=== PATIENT | male | born 1960 | race Caucasian/White ===

== ENCOUNTER 2020-05-10 08:00 | Emergency (ER) | payer BC ==
[2020-05-10 09:11] LABS: Absolute Lymphocytes (CBC) 0.5 K/uL (0.7-4.9); Basophils % 0.5 % (0-1.3); Hematocrit 42.8 % (39.6-49.0); Lymphocytes % 8.3 % (15.3-44.8); MPV 8.2 fL (7.6-11.3); RBC Red Blood Cell Count 4.68 M/uL (4.33-5.43)
--- NOTE | 2020-05-10 09:15 | RAD REPORT ---
EXAM DESCRIPTION: RAD - Chest Single View - 05/10/2020 9:06 am CLINICAL HISTORY: COUGH COMPARISON: None TECHNIQUE: AP portable chest image was obtained 05/10/2020 9:06 am . FINDINGS: No focal consolidation or mass. Low lung volumes accentuate interstitial pattern. No defin itive infiltrative process seen. There is day hazy opacification in the lateral right lung base. This could be atelectasis or minimal infiltrate. Heart and vasculature are normal. No measurable pleural effusion and no pneumothorax. No acute bony abnormality seen. No acute aortic findings suspected. IMPRESSION: Limited shallow inspiration film shows a hazy airspace opacification in the lateral righ t lung base. This could be atelectasis or minimal infiltrate.
[2020-05-10] MEDS ORDERED: ONDANSETRON 4 MG/2 ML VIAL ONE (09:17)
[2020-05-10] MEDS ORDERED: NA CHLORIDE 0.9% 1,000 ML ONE (09:17)
[2020-05-10] MEDS ORDERED: Levofloxacin 750mg IV 750 MG/150 ML BAG IV ONE (09:41)
[2020-05-10 09:46] LABS: Albumin 3.4 g/dL (3.4-5.0); Bilirubin Direct 0.2 mg/dL (0-0.2); Bilirubin Total 0.8 mg/dL (0.2-1.0); Protein, Total 8.1 g/dL (6.4-8.2)
[2020-05-10 09:56] LABS: Blood Morphology Comment NOT SEEN (NOT SEEN); Platelet Estimate ADEQ
--- NOTE | 2020-05-10 10:00 | RAD REPORT ---
EXAM DESCRIPTION: CT - Abdomen Pelvis W Contrast - 05/10/2020 9:43 am CLINICAL HISTORY: vomiting;Abd pain COMPARISON: Chest Single View dated 05/10/2020 TECHNIQUE: Biphasic, helical CT imaging of the abdomen and pelvis was performed following 100 ml non -ionic IV contrast. No oral contrast administered. All CT scans are performed using dose optimization technique as appropriate and may include automated exposure control or mA/KV adjustment according to patient size. FINDINGS: Lung base images show peripheral ground-glass opacification in the lower right lung field with trace opacification in the left base. Although this could be atelectasis, viral pneumonia is lucrecia pected. COVID and non COVID pneumonia is can have this peripheral ground-glass opacification. The por table chest film was limited an additional lung parenchymal opacification could be present. Liver and spleen show no suspicious findings. There is fatty infiltration into the pancreatic parench yma with no pancreatic mass or peripancreatic stranding. Gallbladder and biliary tree are also withou t suspicious finding. Gallstones can be occult on CT imaging. Symmetric renal function is seen with no hydronephrosis or suspicious renal mass. No pyelonephritis o r acute renal parenchymal process. There is an exophytic 2.1 centimeter cyst in the posterior lower p ole left kidney. No bladder abnormalities. No adrenal abnormalities. Prostate gland is prominent proj ecting into the urinary bladder base. No dilated bowel loops or bowel wall thickening. Appendix is normal. There is diverticulosis without evidence for diverticulitis. No free air, free fluid or inflammatory stranding. No hernia, mass or b ulky lymphadenopathy. No suspicious bony findings. Lumbar disc and bone degenerative change present most notable at L5-S1. IMPRESSION: Contrast enhanced CT abdomen and pelvis showing no acute or emergent finding. Lung base ground-glass opacification is suspicious for viral pneumonia. This could be a COVID or non COVID viral infiltrative process. Atelectasis is unlikely. Lung grant are only partially imaged. The portable chest was limited and there may be additional inf iltrative changes in the mid and upper lung grant.
--- NOTE | 2020-05-10 10:33 | EDPHYS ---
Physician Documentation [facility] Name: Dante Suárez Age: 59 yrs Sex: Male : 1960 Arrival Date: 05/10/2020 Time: 08:03 Bed 5 Private MD: ED Physician Jacob Burrell HPI: 05/10 10:05 This 59 yrs old Male presents to ER via Ambulatory with complaints of Fever, rn Cough, Vomiting. 10:05 The patient reports fever, not measured (subjective). Onset: The symptoms/episode rn began/occurred 2 week(s) ago. Modifying factors: there are no obvious modifying factors. Associated signs and symptoms: Pertinent positives: abdominal pain, chills, cough, shortness of breath, vomiting. Severity of symptoms: At their worst the symptoms were mild in the emergency department the symptoms are unchanged. The patient has not experienced similar symptoms in the past. The patient has been recently seen by a physician:. Reports treated 2 weeks ago for sinus infection with unknown abx. Reports still feeling bad, having non-productive cough, fever, chills, fatigue, abd pain, vomiting. . Historical: - Allergies: 08:15 PENICILLINS; ss - Home Meds: 08:15 propranolol 60 mg Oral tab 1 tab [Active]; losartan 25 mg oral tab 1 tab once daily ss [Active]; - PMHx: 08:15 Hypertension; prostate CA; ss - PSHx: 08:15 TOE; ss - Immunization history:: Adult Immunizations up to date. - Social history:: Smoking status: Patient denies any tobacco usage or history of. - Family history:: not pertinent. - Hospitalizations: : No recent hospitalization is reported. ROS: 10:05 Constitutional: + fever and chills Eyes: Negative for injury, pain, redness, and insurance defense attorney, ENT: Negative for injury, pain, and discharge, Cardiovascular: Negative for palpitations, and edema, Respiratory: + sob and cough Abdomen/GI: Negative for diarrhea Back: Negative for injury and pain, MS/Extremity: Negative for injury and deformity, Skin: Negative for injury, rash, and discoloration, Neuro: Negative for numbness, tingling, and seizure Exam: 10:05 Constitutional: This is a well developed, well nourished patient who is awake, alert, rn and in no acute distress. Head/Face: Normocephalic, atraumatic. ENT: No stridor Cardiovascular: Regular rate and rhythm. No pulse deficits. Respiratory: No increased work of breathing, no retractions or nasal flaring. + intermittent cough with deep breathing Abdomen/GI: soft, mild epigastric tenderness Skin: Warm, dry MS/ Extremity: Pulses equal, no cyanosis. Neuro: Awake and alert, GCS 15 Vital Signs: 08:09 BP 150 / 99; Pulse 88; Resp 16; Temp 98.8(O); ss 08:09 Weight 81.65 kg; Height 5 ft. 7 in. (170.18 cm); Pain 6/10; ss 08:23 Pulse Ox 95% on R/A; ss 09:37 BP 133 / 85; Pulse 79; Resp 16; sv 09:44 Pulse Ox 99% on R/A; em 10:49 BP 136 / 89; Pulse 85; Resp 18; Pulse Ox 99% on R/A; em 11:48 BP 130 / 84; Pulse 74; Resp 18; Pulse Ox 99% on R/A; em 08:09 Body Mass Index 28.19 (81.65 kg, 170.18 cm) ss MDM: 08:25 Patient medically screened. rn 10:25 Differential diagnosis: viral Infection, bacterial infection, URI, bronchitis, rn pneumonia. Data reviewed: vital signs, nurses notes, lab test result(s), radiologic studies, CT scan, plain films, and as a result, I will discharge patient. Counseling: I had a detailed discussion with the patient and/or guardian regarding: the historical points, exam findings, and any diagnostic results supporting the discharge/admit diagnosis, lab results, radiology results, the need for outpatient follow up, to return to the emergency department if symptoms worsen or persist or if there are any questions or concerns that arise at home. Response to treatment: the patient's symptoms have markedly improved after treatment, and as a result, I will discharge patient. Special discussion: I discussed with the patient/guardian in detail that at this point there is no indication for admission to the hospital. It is understood, however, that if the symptoms persist or worsen the patient needs to return immediately for re-evaluation. ED course: Pt with Flu B+, pneumonia, no oxygen requirement, and no vomiting here. Stable vitals. COVID sent, will dc home with return precuations. . 05/10 08:41 Order name: Basic Metabolic Panel; Complete Time: 10: rn 05/10 08:41 Order name: CBC with Diff; Complete Time: 10: rn 05/10 08:41 Order name: Hepatic Function; Complete Time: 10: rn 05/10 08:41 Order name: Lipase; Complete Time: 10:04 rn 05/10 08:41 Order name: Flu; Complete Time: 10: rn 05/10 08:41 Order name: COVID-19 rn 05/10 08:41 Order name: XRAY Chest (1 view); Complete Time: 09:18 rn 05/10 08:41 Order name: CT Abd/Pelvis - IV Contrast Only; Complete Time: 10: rn 05/10 08:41 Order name: Procalcitonin; Complete Time: 10: rn 05/10 08:41 Order name: Blood Culture Adult (2) rn 05/10 09:40 Order name: CREATININE WHOLE BLOOD; Complete Time: 10:04 EDPR 05/10 09:56 Order name: Manual Differential; Complete Time: 10: [facility] 05/10 08:41 Order name: IV Saline Lock; Complete Time: 09:09 rn 05/10 08:41 Order name: Labs collected and sent; Complete Time: 09:09 rn Administered Medications: 09:00 Drug: NS 0.9% 1000 ml Route: IV; Rate: 1000 ml; Site: right antecubital; em 10:35 Follow up: IV Status: Completed infusion; IV Intake: 1000ml em 09:00 Drug: Zofran (Ondansetron) 4 mg Route: IVP; Site: right antecubital; em 09:45 Follow up: Response: No adverse reaction; Marked relief of symptoms; Nausea is decreasedem 09:42 Drug: LevaQUIN 750 mg Volume: 150 ml; Route: IVPB; Infused Over: 90 mins; Site: right em antecubital; 11:20 Follow up: Response: No adverse reaction; IV Status: Completed infusion; IV Intake: em 150ml 10:44 Drug: Tamiflu 75 mg Route: PO; em 11:21 Follow up: Response: No adverse reaction em 11:14 Drug: Demerol 25 mg Route: IVP; Site: right antecubital; em 11:30 Follow up: Response: No adverse reaction; Marked relief of symptoms; Pain is decreased; em RASS: Alert and Calm (0) Disposition: 05/10/20 10:32 Discharged to Home. Impression: Influenza due to other identified influenza virus, Pneumonia, unspecified organism. - Condition is Stable. - Discharge Instructions: Ibuprofen Dosage Chart, Pediatric, Acetaminophen Dosage Chart, Pediatric, Influenza, Adult, Community-Acquired Pneumonia, Adult. - Prescriptions for Zofran ODT 4 mg Oral tablet,disintegrating - place 1 tablet by TRANSLINGUAL route every 8 hours As needed; 20 tablet. Levaquin 750 mg Oral Tablet - take 1 tablet by ORAL route once daily for 10 days; 10 tablet. Tamiflu 75 mg Oral Capsule - take 1 capsule by ORAL route every 12 hours for 5 days; 10 capsule. - Medication Reconciliation Form, Thank You Letter, Antibiotic Education, Prescription Opioid Use form. - Follow up: Private Physician; When: 2 - 3 days; Reason: Recheck today's complaints, Re-evaluation by your physician. - Problem is new. - Symptoms have improved. Signatures: Dispatcher [employer] [facility] Aleks Alvarez RN RN em Nieto, Roman, MD MD rn Smirch, Shelby, RN RN ss Corrections: (The following items were deleted from the chart) 09:56 09:20 CBC Smear Scan ordered. [facility] 11:56 10:32 05/10/2020 10:32 Discharged to Home. Impression: Influenza due to other em identified influenza virus; Pneumonia, unspecified organism. Condition is Stable. Forms are Medication Reconciliation Form, Thank You Letter, Antibiotic Education, Prescription Opioid Use. Follow up: Private Physician; When: 2 - 3 days; Reason: Recheck today's complaints, Re-evaluation by your physician. Problem is new. Symptoms have improved. rn
--- NOTE | 2020-05-10 10:33 | ER ---
Nurse's Notes [facility] Name: Dante Suárez Age: 59 yrs Sex: Male : 1960 Arrival Date: 05/10/2020 Time: 08:03 Bed 5 Private MD: Diagnosis: Influenza due to other identified influenza virus;Pneumonia, unspecified organism Presentation: 05/10 08:09 Chief complaint: Patient states: Given antibiotics two weeks ago for sinus infection. ss "My symptoms really changed yesterday." Pt reports fever, cough, body aches and vomiting that began yesterday.". Coronavirus screen: cough unrelated to allergies, vomiting. Client presents with at least one sign or symptom that may indicate coronavirus-19. At this time, the client does not indicate any symptoms associated with coronavirus-19. Ebola Screen: Patient denies exposure to infectious person. Patient denies travel to an Ebola-affected area in the 21 days before illness onset. Initial Sepsis Screen: Does the patient meet any 2 criteria? No. Patient's initial sepsis screen is negative. Does the patient have a suspected source of infection? No. Patient's initial sepsis screen is negative. Risk Assessment: Do you want to hurt yourself or someone else? Patient reports no desire to harm self or others. Onset of symptoms was May 09, 2020. 08:09 Method Of Arrival: Ambulatory ss 08:09 Acuity: [place] 3 ss Historical: - Allergies: 08:15 PENICILLINS; ss - Home Meds: 08:15 propranolol 60 mg Oral tab 1 tab [Active]; losartan 25 mg oral tab 1 tab once daily ss [Active]; - PMHx: 08:15 Hypertension; prostate CA; ss - PSHx: 08:15 TOE; ss - Immunization history:: Adult Immunizations up to date. - Social history:: Smoking status: Patient denies any tobacco usage or history of. - Family history:: not pertinent. - Hospitalizations: : No recent hospitalization is reported. Screenin:32 Abuse screen: Denies threats or abuse. Nutritional screening: No deficits noted. em Tuberculosis screening: No symptoms or risk factors identified. Fall Risk None identified. Assessment: 08:40 General: Appears in no apparent distress. uncomfortable, Behavior is calm, cooperative, em appropriate for age, Reports fever for 12-24 hours. Pain: Complains of pain in abdomen Pain currently is 6 out of 10 on a pain scale. Neuro: Level of Consciousness is awake, alert, obeys commands, Oriented to person, place, time, situation, Appropriate for age. Cardiovascular: Capillary refill < 3 seconds Patient's skin is warm and dry. Respiratory: Reports shortness of breath cough that is pain with movement Airway is patent Respiratory effort is even, unlabored, Respiratory pattern is regular, symmetrical. GI: Abdomen is flat, Reports nausea, vomiting. Derm: Skin is intact, is healthy with good turgor, Skin is pink, warm \\T\\ dry. Musculoskeletal: Capillary refill < 3 seconds, Range of motion: intact in all extremities. 09:16 Reassessment: wheeled to CT via stretcher. em 10:44 Reassessment: Patient appears in no apparent distress at this time. Patient and/or em family updated on plan of care and expected duration. Pain level reassessed. Patient is alert, oriented x 3, equal unlabored respirations, skin warm/dry/pink. pending completion of IV ABX before discharging pt. 11:03 Reassessment: pt reports pain is coming back, Dr. Burrell informed, received VO for 25 mg em Demerol IVP x 1. 11:38 Reassessment: Patient appears in no apparent distress at this time. Patient and/or em family updated on plan of care and expected duration. Pain level reassessed. Patient is alert, oriented x 3, equal unlabored respirations, skin warm/dry/pink. Vital Signs: 08:09 BP 150 / 99; Pulse 88; Resp 16; Temp 98.8(O); ss 08:09 Weight 81.65 kg; Height 5 ft. 7 in. (170.18 cm); Pain 6/10; ss 08:23 Pulse Ox 95% on R/A; ss 09:37 BP 133 / 85; Pulse 79; Resp 16; sv 09:44 Pulse Ox 99% on R/A; em 10:49 BP 136 / 89; Pulse 85; Resp 18; Pulse Ox 99% on R/A; em 11:48 BP 130 / 84; Pulse 74; Resp 18; Pulse Ox 99% on R/A; em 08:09 Body Mass Index 28.19 (81.65 kg, 170.18 cm) ED Course: 08:03 Patient arrived in ED. mr 08:14 Triage completed. ss 08:15 Arm band placed on left wrist. ss 08:25 Jacob Burrell MD is Attending Physician. rn 08:26 Aleks Alvarez, JASS is Primary Nurse. em 08:32 Patient has correct armband on for positive identification. Bed in low position. Call em light in reach. Side rails up X2. Adult w/ patient. Pulse ox on. NIBP on. 08:50 Inserted saline lock: 20 gauge in right antecubital area, using aseptic technique. em Blood collected. 08:50 First set of blood cultures drawn by me. em 09:06 XRAY Chest (1 view) In Process Unspecified. EDMS 09:43 CT Abd/Pelvis - IV Contrast Only In Process Unspecified. EDMS 11:47 No provider procedures requiring assistance completed. IV discontinued, intact, em bleeding controlled, No redness/swelling at site. Pressure dressing applied. Administered Medications: 09:00 Drug: NS 0.9% 1000 ml Route: IV; Rate: 1000 ml; Site: right antecubital; em 10:35 Follow up: IV Status: Completed infusion; IV Intake: 1000ml em 09:00 Drug: Zofran (Ondansetron) 4 mg Route: IVP; Site: right antecubital; em 09:45 Follow up: Response: No adverse reaction; Marked relief of symptoms; Nausea is decreasedem 09:42 Drug: LevaQUIN 750 mg Volume: 150 ml; Route: IVPB; Infused Over: 90 mins; Site: right em antecubital; 11:20 Follow up: Response: No adverse reaction; IV Status: Completed infusion; IV Intake: em 150ml 10:44 Drug: Tamiflu 75 mg Route: PO; em 11:21 Follow up: Response: No adverse reaction em 11:14 Drug: Demerol 25 mg Route: IVP; Site: right antecubital; em 11:30 Follow up: Response: No adverse reaction; Marked relief of symptoms; Pain is decreased; em RASS: Alert and Calm (0) Intake: 10:35 IV: 1000ml; Total: 1000ml. em 11:20 IV: 150ml; Total: 1150ml. em Outcome: 10:32 Discharge ordered by . rn 11:47 Discharged to home ambulatory. em 11:47 Condition: good 11:47 Discharge instructions given to patient, family, Instructed on discharge instructions, follow up and referral plans. medication usage, Demonstrated understanding of instructions, follow-up care, medications, Prescriptions given X 3. 11:56 Patient left the ED. em Addendum: 05/12/2020 17:05 Addendum: COVID-19 Result: Positive result giiven to ED physician to notify pt. Other: a a5 Pt came back to ER and was admitted, COVID-19 positive result was given during ER visit on 05/12/20. Signatures: Dispatcher [employer] Isidra Woo, RN JASS She Tripathi mr AlvarezAleks RN RN em Nieto, Roman, MD MD rn Calderon, Audri, RN RN aa5 Smirch, Shelby, RN RN ss Corrections: (The following items were deleted from the chart) 05/10 10:51 09:37 Pulse Ox 95% RA; ss ss
[2020-05-10] MEDS ORDERED: OSELTAMIVIR 75 MG CAP ONE (10:53)
[2020-05-10] MEDS ORDERED: MEPERIDINE HCL 25 MG/ML SYR ONE (11:18)
[2020-05-10 12:57] VITALS: TEMP 98.8
[2020-05-10 13:04] VITALS: O2SAT 99
[2020-05-10 13:08] VITALS: BP 130/84
== END 2020-05-10 11:56 | disposition home or self-care (01) ==
LOC: ER 08:00
DX: U07.1 COVID-19 (principal); J10.00 Influenza due to other identified influenza virus with unspecified type of pneumonia; I10 Essential (primary) hypertension; Z88.0 Allergy status to penicillin; Z85.46 Personal history of malignant neoplasm of prostate
CPT/HCPCS: 96365; 96361; 87040 ×2; 85025; 80048; 36415; 82565; 80076; 83690; 84145; 87804 ×2; 74177; 71045; 96375; 99284; 96366; U0002; Q9967; J2175; J7030; J2405

== ENCOUNTER 2020-05-12 03:59 | Inpatient (IN) | payer BC ==
[2020-05-12 05:12] LABS: Absolute Lymphocytes (CBC) 0.3 K/uL (0.7-4.9); Basophils % 0.1 % (0-1.3); Hematocrit 38.7 % (39.6-49.0); Lymphocytes % 2.5 % (15.3-44.8); MPV 8.6 fL (7.6-11.3); RBC Red Blood Cell Count 4.27 M/uL (4.33-5.43)
[2020-05-12] MEDS ORDERED: MORPHINE 4 MG/ML SYR ONE (05:12)
[2020-05-12] MEDS ORDERED: ACETAMINOPHEN 325 MG TABLET ONE (05:12)
[2020-05-12] MEDS ORDERED: OSELTAMIVIR 75 MG CAP ONE (05:12)
[2020-05-12] MEDS ORDERED: METHYLPREDNISOLONE 125 MG INJ ONE (05:12)
[2020-05-12] MEDS ORDERED: CEFTRIAXONE/SWI 1gm 1 GM/10 ML SYR ONE (05:13)
[2020-05-12] MEDS ORDERED: ONDANSETRON 4 MG/2 ML VIAL ONE (05:13)
[2020-05-12] MEDS ORDERED: NA CHLORIDE 0.9% 1,000 ML ONE (05:13)
[2020-05-12 05:15] LABS: Protime INR 1.32
[2020-05-12] MEDS ORDERED: NA CHLORIDE 0.9% 0 ML ONE (05:31)
[2020-05-12] MEDS ORDERED: AZITHROMYCIN 500 MG INJ IVPB ONE (05:31)
[2020-05-12] MEDS ORDERED: NA CHLORIDE 0.9% 250 ML ONE (05:34)
[2020-05-12 05:47] LABS: ALT/SGPT 22 U/L (12-78); AST/SGOT 29 U/L (15-37); Alkaline Phosphatase 74 U/L (45-117); BUN Blood Urea Nitrogen 14 mg/dL (7-18); Bicarbonate 27 mmol/L (21-32); Bilirubin Direct 0.3 mg/dL (0-0.2); Bilirubin Total 0.8 mg/dL (0.2-1.0); CKMB Creatine Kinase MB < 1.0 ng/mL (0.3-3.6); Creatine Phosphokinase 157 U/L (39-308); Glucose Level 164 mg/dL (74-106); Lipase 43 U/L (73-393); NT PRO-BNP 913 pg/mL (<125); Potassium 3.7 mmol/L (3.5-5.1); Protein, Total 7.8 g/dL (6.4-8.2); Sodium Level 131 mmol/L (136-145); Troponin (Emerg Dept Use Only) < 0.02 ng/mL (0.0-0.045)
--- NOTE | 2020-05-12 05:50 | P.HP ---
Certification for Inpatient Patient admitted to: Inpatient With expected LOS: >2 Midnights Patient will require the following post-hospital care: None Practitioner: I am a practitioner with admitting privileges, knowledge of patient current condition, hospital course, and medical plan of care. Services: Services provided to patient in accordance with Admission requirements found in Title 42 Section 412.3 of the Code of Federal Regulations <NakiaChase - Last Filed: 05/12/20 05:56> Patient History Date of Service: 05/12/20 Primary Care Provider: Primary care in [place] Reason for admission: Pneumonia History of Present Illness: 51-year-old male with history of hypertension and prostate cancer presents emergency department for shortness of breath and fever. Patient reports that he has been feeling unwell for the past few days and was seen in the emergency department 2 days ago when he was diagnosed with influenza B. patient had CT scan of the abdomen and pelvis and chest x-ray which revealed bilateral ground-glass opacities in the lung bases believed to be viral pneumonia. CT scan was negative for any acute findings. Patient was prescribed Tamiflu and Levaquin for which she has been taking 2 days. Patient reported feeling worse this morning, more short of breath. Patient had pulse oximeter at home and his room air saturations were 88%. Patient presented to the ER for further evaluation. Patient noted to have white blood cell count 11.5 with left shift, this had increased from 6.[address] PE protocol pending at this time, patient was tested for Allen virus during his last visit but had the send out test performed as he was not being admitted at that time. Results are unavailable at this time. Will order allen virus rapid test for this admission. When I saw the patient in the ER he was awake, alert, oriented x3. Patient has reported some nausea, vomiting, anorexia at home along with his shortness of breath and cough. Patient febrile on presentation to ED but does not appear septic at this time. Lactate within normal limits. Patient be admitted for further evaluation and management. - Past Medical/Surgical History -: Hypertension -: Prostate cancer-abnormal cells without mass -: Left toe arthroplasty Psychosocial/ Personal History: Patient lives at home with his - Family History Family History: Reviewed- Non-Contributory - Social History Smoking Status: Never smoker Alcohol use: Yes CD- Drugs: No Caffeine use: Yes Place of Residence: Home <Chase Yee - Last Filed: 05/12/20 05:56> Date of Service: 05/12/20 <lexus martin - Last Filed: 05/12/20 11:04> Allergies Penicillins Allergy (Verified 05/12/20 06:59) Rash Home Medications: Losartan Potassium 25 mg PO DAILY 05/12/20 Propranolol [Inderal LA*] 60 mg PO DAILY 05/12/20 Review of Systems General: Fever, Chills, Sweats, Weakness, Malaise Respiratory: Cough, Shortness of Breath, Pleuritic Pain Gastrointestinal: Nausea, Vomiting, Abdominal Pain, Constipation <Chase Yee - Last Filed: 05/12/20 05:56> Physical Examination - Physical Exam General: Alert, In no apparent distress HEENT: Atraumatic, PERRLA, Mucous membr. moist/pink Neck: Supple, 2+ carotid pulse no bruit, No LAD Respiratory: Clear to auscultation bilaterally, Diminished (Bilaterally) Cardiovascular: Regular rate/rhythm, Normal S1 S2 Capillary refill: <2 Seconds Gastrointestinal: Normal bowel sounds, Tenderness (Mild epigastric tenderness noted) Musculoskeletal: No tenderness Integumentary: No rashes Neurological: Normal speech, Normal strength at 5/5 x4 extr, Normal tone, Normal affect - Studies Laboratory Data (last 24 hrs) 05/12/20 04:45: PT 15.5 H, INR 1.32, APTT 27.7 05/12/20 04:45: WBC 11.5 H D, Hgb 13.6, Hct 38.7 L, Plt Count 242 <Chase Yee - Last Filed: 05/12/20 05:56> - Studies Laboratory Data (last 24 hrs) 05/12/20 04:45: PT 15.5 H, INR 1.32, APTT 27.7 05/12/20 04:45: WBC 11.5 H D, Hgb 13.6, Hct 38.7 L, Plt Count 242 05/12/20 04:45: Sodium 131 L, Potassium 3.7, BUN 14, Creatinine 1.28, Glucose 164 H, Magnesium 2.0, Total Bilirubin 0.8, AST 29, ALT 22, Alkaline Phosphatase 74, Lipase 43 L 05/12/20 04:25: PT Cancelled, INR Cancelled, APTT Cancelled 05/12/20 04:25: WBC Cancelled, Hgb Cancelled, Hct Cancelled, Plt Count Cancelled 05/12/20 04:25: Sodium Cancelled, Potassium Cancelled, BUN Cancelled, Creatinine Cancelled, Glucose Cancelled, Magnesium Cancelled, Total Bilirubin Cancelled, AST Cancelled, ALT Cancelled, Alkaline Phosphatase Cancelled, Lipase Cancelled <lexus martin - Last Filed: 05/12/20 11:04> Assessment and Plan - Plan Assessment Bilateral viral pneumonia with suspected secondary bacterial infection-failed outpatient therapy-with hypoxia Hypertension Plan Bilateral viral pneumonia with suspected secondary bacterial infection-failed outpatient therapy-with hypoxia: Continue with oral Tamiflu in addition to IV Levaquin. Oxygen therapy as needed. Daily room air saturations. Incentive spirometry. DVT prophylaxis Lovenox 40 mg subcutaneous once daily. Hypertension: Patient blood pressure within normal limits this time. Will restart blood pressure medications as appropriate. Discharge Plan: Home Plan to discharge in: 48 Hours - Advance Directives Does patient have a Living Will: No Does patient have a Durable POA for Healthcare: No - Code Status/Comfort Care Code Status Assessed: Yes (Full code) Critical Care: No Time Spent Managing Pts Care (In Minutes): 55 <Chase Yee - Last Filed: 05/12/20 05:56> Physician Review: Patient Assessed, Agree with Above Assessment and Plan Physician Review Additional Text: Patient tolerated room air with good oxygen saturation. He is complaining of 5 days of constipation and epigastric pain. Plan: COVID Pneumonia Functional constipation. Supportive measures. Start oral prednisone. Vitamins supplementation. Start Senna and miralax Dulcolax suppository today. Assess for home oxygen. <lexus martin - Last Filed: 05/12/20 11:04>
--- NOTE | 2020-05-12 06:11 | EDPHYS ---
Physician Documentation [facility] Name: Dante Suárez Age: 59 yrs Sex: Male : 1960 Arrival Date: 05/12/2020 Time: 04:02 Bed 17 Private MD: ED Physician Raulito Gonzalez HPI: 05/12 04:34 This 59 yrs old Male presents to ER via Wheelchair with complaints of ma2 Breathing Difficulty, Low Oxygen Level. 04:34 The patient has shortness of breath at rest. Onset: The symptoms/episode began/occurred ma2 gradually, 2 week(s) ago. Associated signs and symptoms: Pertinent positives: productive cough, Pertinent negatives: productive cough, dizziness, hemoptysis, loss of consciousness, numbness in extremities. Severity of symptoms: At their worst the symptoms were moderate in the emergency department the symptoms are unchanged. The patient has not experienced similar symptoms in the past. Historical: - Allergies: 04:19 PENICILLINS; jb4 - Home Meds: 04:19 losartan 25 mg Oral tab 1 tab once daily [Active]; propranolol 60 mg Oral tab 1 tab jb4 [Active]; - PMHx: 04:19 PROSTATE CA; Hypertension; jb4 - PSHx: 04:19 Left first toe; jb4 - Immunization history:: Adult Immunizations up to date. - Social history:: Smoking status: Patient denies any tobacco usage or history of. Patient/guardian denies using alcohol, street drugs, Patient/guardian denies using The patient lives with family. ROS: 04:34 Constitutional: Negative for fever, chills, and weight loss. ma2 04:34 All other systems are negative. Exam: 04:34 Constitutional: This is a well developed, well nourished patient who is awake, alert, ma2 and in no acute distress. Head/Face: Normocephalic, atraumatic. Eyes: Pupils equal round and reactive to light, extra-ocular motions intact. Lids and lashes normal. Conjunctiva and sclera are non-icteric and not injected. Cornea within normal limits. Periorbital areas with no swelling, redness, or edema. ENT: Nares patent. No nasal discharge, no septal abnormalities noted. Tympanic membranes are normal and external auditory canals are clear. Oropharynx with no redness, swelling, or masses, exudates, or evidence of obstruction, uvula midline. Mucous membranes moist. Neck: Trachea midline, no thyromegaly or masses palpated, and no cervical lymphadenopathy. Supple, full range of motion without nuchal rigidity, or vertebral point tenderness. No Meningismus. Chest/axilla: Normal chest wall appearance and motion. Nontender with no deformity. No lesions are appreciated. Cardiovascular: Regular rate and rhythm with a normal S1 and S2. No gallops, murmurs, or rubs. Normal PMI, no JVD. No pulse deficits. Abdomen/GI: Soft, non-tender, with normal bowel sounds. No distension or tympany. No guarding or rebound. No evidence of tenderness throughout. MS/ Extremity: Pulses equal, no cyanosis. Neurovascular intact. Full, normal range of motion. Neuro: Awake and alert, GCS 15, oriented to person, place, time, and situation. Cranial nerves II-XII grossly intact. Motor strength 5/5 in all extremities. Sensory grossly intact. Cerebellar exam normal. Normal gait. 04:34 Respiratory: mild respiratory distress is noted, Respirations: labored breathing, that is mild, Breath sounds: rales, are located in both bases, bronchial sounds, that are moderate, Respiratory rate: 25 Vital Signs: 04:14 BP 126 / 76; Pulse 89; Resp 16; Temp 103.1(O); Pulse Ox 96% on R/A; Weight 81.65 kg jb4 (R); Height 5 ft. 7 in. (170.18 cm) (R); Pain 8/10; 05:30 BP 102 / 62; Pulse 80; Resp 21; Temp 102.1(O); Pulse Ox 94% on R/A; jb4 06:30 BP 102 / 69; Pulse 79; Resp 19 S; Temp 99.9(O); Pulse Ox 94% on R/A; jb4 04:14 Body Mass Index 28.19 (81.65 kg, 170.18 cm) [facility] MDM: 04:08 Patient medically screened. sd2 06:08 Differential diagnosis: Bronchitis pneumonia, reactive airway disease. Data reviewed: sd2 vital signs, nurses notes. Counseling: I had a detailed discussion with the patient and/or guardian regarding: the historical points, exam findings, and any diagnostic results supporting the discharge/admit diagnosis, the presence of at least one elevated blood pressure reading (>120/80) during this emergency department visit, the need for outpatient follow up. Response to treatment: There is no appreciated change of the patient's symptoms at this time. ED course: patient failed outpatient management, will admit for iv antibiotics, pending covid result, discussed with hospitalist Chase. 05/12 04:25 Order name: Blood Culture Adult (2) sd2 05/12 04:25 Order name: BMP sd2 05/12 04:25 Order name: CBC with Diff sd2 05/12 04:25 Order name: Ckmb sd2 05/12 04:25 Order name: CPK sd2 05/12 04:25 Order name: D-Dimer sd2 05/12 04:25 Order name: Hepatic Function sd2 05/12 04:25 Order name: Lipase sd2 05/12 04:25 Order name: Magnesium sd2 05/12 04:25 Order name: NT PRO-BNP sd2 05/12 04:25 Order name: PT-INR sd2 05/12 04:25 Order name: Ptt, Activated sd2 05/12 04:25 Order name: Troponin (emerg Dept Use Only) sd2 05/12 04:34 Order name: COVID-19 sd2 05/12 04:25 Order name: CT Chest For PE Angio sd2 05/12 05:16 Order name: Protime (+INR); Complete Time: 05:36 EDMS 05/12 05:16 Order name: PTT, Activated Partial Thromb; Complete Time: 05:36 EDMS 05/12 05:16 Order name: D-Dimer; Complete Time: 05:36 EDMS 05/12 05:20 Order name: CBC with Automated Diff EDMS 05/12 05:48 Order name: Basic Metabolic Panel; Complete Time: 06:06 EDMS 05/12 05:48 Order name: Liver (Hepatic) Function; Complete Time: 06:06 EDMS 05/12 05:48 Order name: Creatine Phosphokinase; Complete Time: 06:06 EDMS 05/12 05:48 Order name: CKMB Creatine Kinase MB; Complete Time: 06:06 EDMS 05/12 05:48 Order name: Troponin (Emerg Dept Use Only); Complete Time: 06:06 EDMS 05/12 05:48 Order name: NT PRO-BNP; Complete Time: 06:06 EDMS 05/12 05:48 Order name: Magnesium; Complete Time: 06:06 EDMS 05/12 05:48 Order name: Lipase; Complete Time: 06:06 EDMS 05/12 06:43 Order name: Manual Differential EDMS 05/12 07:05 Order name: Blood Culture EDMS 05/12 07:22 Order name: SARS-COV-2 RT PCR EDMS 05/12 04:25 Order name: EKG; Complete Time: 06:51 ma2 05/12 04:25 Order name: Cardiac monitoring; Complete Time: 04:41 ma2 05/12 04:25 Order name: EKG - Nurse/Tech; Complete Time: 04:41 ma2 05/12 04:25 Order name: IV Saline Lock; Complete Time: 04:53 ma2 05/12 04:25 Order name: Labs collected and sent; Complete Time: 04:53 ma2 05/12 04:25 Order name: O2 Per Protocol; Complete Time: 04:31 ma2 05/12 04:25 Order name: O2 Sat Monitoring; Complete Time: 04:31 ma2 Administered Medications: 04:50 Drug: Zofran (Ondansetron) 4 mg Route: IVP; Site: right antecubital; jb4 05:20 Follow up: Response: No adverse reaction; Nausea is decreased jb4 04:52 Drug: morphine 4 mg Route: IVP; Site: right antecubital; jb4 05:20 Follow up: Response: No adverse reaction; Pain is decreased; RASS: Alert and Calm (0) jb4 04:53 Drug: SOLU-Medrol 125 mg Route: IVP; Site: right antecubital; jb4 04:54 Drug: Rocephin 1 grams Route: IV; Rate: calculated rate; Site: right antecubital; jb4 04:56 Follow up: IV Status: Completed infusion; IV Intake: 10ml jb4 05:25 Follow up: Response: No adverse reaction jb4 05:00 Drug: NS 0.9% 1000 ml Route: IV; Rate: 125 ml/hr; Site: right antecubital; jb4 05:00 Drug: Tylenol 650 mg Route: PO; jb4 06:44 Follow up: Response: No adverse reaction; Temperature is decreased jb4 05:34 Drug: AZITHromycin 500 mg Route: IVPB; Infused Over: 1 hrs; Site: right antecubital; jb4 06:44 Follow up: Response: No adverse reaction; IV Status: Completed infusion; IV Intake: jb4 250ml 05:34 Not Given (PT took Prior to arrival to ED): Tamiflu 75 mg PO once jb4 Disposition: 05/12/20 06:10 Hospitalization ordered by Sven Kent for Inpatient Admission. Preliminary diagnosis are Pneumonia due to other infectious organisms, not elsewhere classified, Influenza due to other identified influenza virus - type B. - Bed requested for Intensive Care Unit. - Status is Inpatient Admission. jl7 - Condition is Stable. - Problem is new. - Symptoms are unchanged. Signatures: Dispatcher [employer] EDMS Mildred Lomeli Lee, LIVAN-C TIRE LAYER-Cla1 Meli Prasad, RN RN tl1 Shaw Herrera RN RN jb4 Shasta Dean RN RN jl7 Raulito Gonzalez MD MD ma2 Corrections: (The following items were deleted from the chart) 06:14 06:10 Hospitalization Ordered by Sven Kent for Inpatient Admission. Preliminary tl1 diagnosis is Pneumonia due to other infectious organisms, not elsewhere classified; Influenza due to other identified influenza virus - type B. Bed requested for Telemetry/MedSurg (Inpatient). Status is Inpatient Admission. Condition is Stable. Problem is new. Symptoms are unchanged. ma2 08:11 06:14 05/12/2020 06:10 Hospitalization Ordered by Sven Kent for Inpatient bd Admission. Preliminary diagnosis is Pneumonia due to other infectious organisms, not elsewhere classified; Influenza due to other identified influenza virus - type B. Bed requested for [facility] ER HOLD. Status is Inpatient Admission. Condition is Stable. Problem is new. Symptoms are unchanged. tl1 08:14 08:11 05/12/2020 06:10 Hospitalization Ordered by Sven Kent for Inpatient bd Admission. Preliminary diagnosis is Pneumonia due to other infectious organisms, not elsewhere classified; Influenza due to other identified influenza virus - type B. Bed requested for Telemetry/MedSurg (Inpatient). Status is Inpatient Admission. Condition is Stable. Problem is new. Symptoms are unchanged. bd 09:52 08:14 05/12/2020 06:10 Hospitalization Ordered by Sven Kent for Inpatient jl7 Admission. Preliminary diagnosis is Pneumonia due to other infectious organisms, not elsewhere classified; Influenza due to other identified influenza virus - type B. Bed requested for Intensive Care Unit. Status is Inpatient Admission. Condition is Stable. Problem is new. Symptoms are unchanged. bd
--- NOTE | 2020-05-12 06:11 | ER ---
Nurse's Notes [facility] Name: Dante Suárez Age: 59 yrs Sex: Male : 1960 Arrival Date: 05/12/2020 Time: 04:02 Bed 17 Private MD: Diagnosis: Pneumonia due to other infectious organisms, not elsewhere classified;Influenza due to other identified influenza virus-type B Presentation: 05/12 04:14 Chief complaint: Patient states: I was here two days ago and was diagnosed with Flu B jb4 double Pneumonia. I was told to come back if I got worse or began feeling weak. My oxygen as I was resting was 88%. Coronavirus screen: Client denies travel out of the [place] in the last 14 days. Client presents with at least one sign or symptom that may indicate coronavirus-19. Standard/surgical mask placed on the client. Ebola Screen: Patient negative for fever greater than or equal to 101.5 degrees Fahrenheit, and additional compatible Ebola Virus Disease symptoms. Initial Sepsis Screen: Does the patient meet any 2 criteria? Temp <36.0*C (96.8*F)) or > 38.3*C (100.9*F). Yes Does the patient have a suspected source of infection? No. Patient's initial sepsis screen is negative. Risk Assessment: Do you want to hurt yourself or someone else? Patient reports no desire to harm self or others. Onset of symptoms was April 28, 2020. Transition of care: patient was not received from another setting of care. 04:14 Method Of Arrival: Wheelchair jb4 04:14 Acuity: DAYLIN 3 jb4 Historical: - Allergies: 04:19 PENICILLINS; jb4 - Home Meds: 04:19 losartan 25 mg Oral tab 1 tab once daily [Active]; propranolol 60 mg Oral tab 1 tab jb4 [Active]; - PMHx: 04:19 PROSTATE CA; Hypertension; jb4 - PSHx: 04:19 Left first toe; jb4 - Immunization history:: Adult Immunizations up to date. - Social history:: Smoking status: Patient denies any tobacco usage or history of. Patient/guardian denies using alcohol, street drugs, Patient/guardian denies using The patient lives with family. Screenin:14 Abuse screen: Denies threats or abuse. Nutritional screening: No deficits noted. jb4 Tuberculosis screening: No symptoms or risk factors identified. Fall Risk None identified. Assessment: 04:14 General: Appears in no apparent distress. comfortable, Behavior is calm, cooperative, jb4 appropriate for age. Pain: Complains of pain in chest Pain does not radiate. Pain currently is 8 out of 10 on a pain scale. Neuro: Level of Consciousness is awake, alert, obeys commands, Oriented to person, place, time, situation. Cardiovascular: Rhythm is sinus rhythm. Respiratory: Airway is patent Respiratory effort is even, unlabored, Respiratory pattern is regular, symmetrical, Breath sounds are clear bilaterally. GI: No signs and/or symptoms were reported involving the gastrointestinal system. : No signs and/or symptoms were reported regarding the genitourinary system. EENT: No signs and/or symptoms were reported regarding the EENT system. Derm: Skin is intact, Skin is pink, warm \T\ dry. Musculoskeletal: Circulation, motion, and sensation intact. Range of motion: intact in all extremities. 05:30 Reassessment: Patient appears in no apparent distress at this time. Patient and/or jb4 family updated on plan of care and expected duration. Pain level reassessed. Patient is alert, oriented x 3, equal unlabored respirations, skin warm/dry/pink. 06:30 Reassessment: Patient appears in no apparent distress at this time. Patient and/or jb4 family updated on plan of care and expected duration. Pain level reassessed. Patient is alert, oriented x 3, equal unlabored respirations, skin warm/dry/pink. 07:30 Reassessment: Patient appears in no apparent distress at this time. No changes from jl7 previously documented assessment. Patient and/or family updated on plan of care and expected duration. Pain level reassessed. Patient is alert, oriented x 3, equal unlabored respirations, skin warm/dry/pink. Vital Signs: 04:14 BP 126 / 76; Pulse 89; Resp 16; Temp 103.1(O); Pulse Ox 96% on R/A; Weight 81.65 kg jb4 (R); Height 5 ft. 7 in. (170.18 cm) (R); Pain 8/10; 05:30 BP 102 / 62; Pulse 80; Resp 21; Temp 102.1(O); Pulse Ox 94% on R/A; jb4 06:30 BP 102 / 69; Pulse 79; Resp 19 S; Temp 99.9(O); Pulse Ox 94% on R/A; jb4 04:14 Body Mass Index 28.19 (81.65 kg, 170.18 cm) jb4 ED Course: 04:02 Patient arrived in ED. cl3 04:08 Raulito Gonzalez MD is Attending Physician. ma2 04:14 Shaw Herrera RN is Primary Nurse. jb4 04:14 Patient has correct armband on for positive identification. Call light in reach. Side jb4 rails up X 1. monitoring coordinator on. Pulse ox on. NIBP on. 04:18 Triage completed. jb4 04:19 Arm band placed on right wrist. jb4 04:45 Inserted saline lock: 18 gauge in right antecubital area, using aseptic technique. 4 Blood collected. 05:00 Initial lab(s) drawn, by ma, sent to lab. First set of blood cultures drawn by me. jb4 Second set of blood cultures drawn by me. 06:10 Sven Kent is Hospitalizing Provider. ma2 06:36 No provider procedures requiring assistance completed. Patient admitted, IV remains in jb4 place. 07:00 COVID swab sent to lab. Swab sent to lab at 0630 per JASS Casey. jl7 Administered Medications: 04:50 Drug: Zofran (Ondansetron) 4 mg Route: IVP; Site: right antecubital; 4 05:20 Follow up: Response: No adverse reaction; Nausea is decreased [facility] 04:52 Drug: morphine 4 mg Route: IVP; Site: right antecubital; 4 05:20 Follow up: Response: No adverse reaction; Pain is decreased; RASS: Alert and Calm (0) 4 04:53 Drug: SOLU-Medrol 125 mg Route: IVP; Site: right antecubital; 4 04:54 Drug: Rocephin 1 grams Route: IV; Rate: calculated rate; Site: right antecubital; 4 04:56 Follow up: IV Status: Completed infusion; IV Intake: 10ml [facility] 05:25 Follow up: Response: No adverse reaction [facility] 05:00 Drug: NS 0.9% 1000 ml Route: IV; Rate: 125 ml/hr; Site: right antecubital; jb4 05:00 Drug: Tylenol 650 mg Route: PO; jb4 06:44 Follow up: Response: No adverse reaction; Temperature is decreased jb4 05:34 Drug: AZITHromycin 500 mg Route: IVPB; Infused Over: 1 hrs; Site: right antecubital; jb4 06:44 Follow up: Response: No adverse reaction; IV Status: Completed infusion; IV Intake: jb4 250ml 05:34 Not Given (PT took Prior to arrival to ED): Tamiflu 75 mg PO once jb4 Intake: 04:56 IV: 10ml; Total: 10ml. jb4 06:44 IV: 250ml; Total: 260ml. jb4 Outcome: 06:10 Decision to Hospitalize by Provider. ma2 06:36 Admitted to [facility] Hold. [facility]. jb4 06:36 Condition: stable 06:36 Discharge instructions given to patient, family, Instructed on the need for admit, Demonstrated understanding of instructions. 09:52 Admitted to ICU accompanied by layne, via wheelchair, room 5, with chart, Report called jlBette to JASS Meyer 09:52 Patient left the ED. agustín Signatures: Shaw Herrera RN RN jb4 Shasta Dean RN RN jl7 Raulito Gonzalez MD MD ma2 Raissa Saeed cl3 Corrections: (The following items were deleted from the chart) 05:45 05:30 BP 102 / 62; Pulse 80bpm; Resp 21bpm; Pulse Ox 94% RA; jb4 jb4 06:44 06:30 BP 102 / 69; Pulse 79bpm; Resp 19bpm; Spontaneous; Pulse Ox 94% RA; jb4 jb4
[2020-05-12 06:42] LABS: Platelet Estimate ADEQ
[2020-05-12 06:43] LABS: Blood Morphology Comment NOT SEEN (NOT SEEN)
[2020-05-12] MEDS ORDERED: BENZONATATE 100 MG CAP PO PRN (07:04)
[2020-05-12] MEDS ORDERED: ACETAMINOPHEN 500 MG TAB PO PRN (07:04)
[2020-05-12] MEDS ORDERED: HYDROCODONE/APAP 5/325 MG TAB PO PRN (07:04)
[2020-05-12] MEDS ORDERED: ONDANSETRON 4 MG/2 ML VIAL IV PRN (07:04)
[2020-05-12] MEDS ORDERED: NA CHLORIDE 0.9% 1,000 ML IV SCH (07:04)
[2020-05-12 07:27] VITALS: BMI 28.1
[2020-05-12] MEDS ORDERED: ENOXAPARIN 40 MG/0.4 ML SQ ONE (08:20)
[2020-05-12] MEDS: ENOXAPARIN 40 MG/0.4 ML SQ SCH (10:39)
[2020-05-12] MEDS ORDERED: POLYETHYL GLY 3350 17 GM/DOSE PO PRN (11:04)
[2020-05-12] MEDS ORDERED: BISACODYL 10 MG RECTAL SUPP PR ONE (11:15)
--- NOTE | 2020-05-12 12:14 | RAD REPORT ---
EXAM DESCRIPTION: CT Angiography Chest With Intravenous Contrast CLINICAL HISTORY: The patient is 59 years old and is Male; CHEST PAIN; COUGH; CONGESTION TECHNIQUE: Axial computed tomographic angiography images of the chest with intravenous contrast. S agittal and coronal reformatted images were created and reviewed. This CT exam was performed using one or more of the following dose reduction techniques: automated exposure control, adjustment of t he mA and/or kV according to patient size, and/or use of iterative reconstruction technique. MIP reconstructed images were created and reviewed. COMPARISON: No relevant prior studies available. FINDINGS: PULMONARY ARTERIES: There are no obvious filling defects identified within the pulmonary arteries to suggest pulmonary embolism. AORTA: No acute findings. No thoracic aortic aneurysm. LUNGS: Patchy peripheral groundglass opacities are present throughout the lungs. Mild interlobul ar thickening is noted. PLEURAL SPACE: Unremarkable. No significant effusion. No pneumothorax. HEART: Unremarkable. No cardiomegaly. No significant pericardial effusion. No evidence of RV dysfunction. BONES/JOINTS: Mild degenerative changes spine is present. No acute fracture. No dislocation. SOFT TISSUES: Unremarkable. LYMPH NODES: Shotty central mediastinal adenopathy is noted. LIVER: The liver is enlarged. IMPRESSION: 1. No evidence of pulmonary embolism. 2. Commonly reported imaging features of (COVID-19 or viral) pneumonia are present. Other processes such as influenza pneumonia and organizing pneumonia, as can be seen with drug toxicity and connecti ve tissue disease, can cause a similar imaging pattern. [id number] Electronically signed by: Katlin Negrete MD 05/12/2020 6:46 AM ACID POLYMERIZATION OPERATOR Due to temporary technical issues with the PACS/Fluency reporting system, reports are being signed by the in house radiologist without review as a courtesy to ensure prompt reporting. The interpreting r adiologist is fully responsible for the content of the report.
[2020-05-12] MEDS: OSELTAMIVIR 75 MG CAP PO SCH (20:16)
[2020-05-12] MEDS ORDERED: SENOSIDES 8.6 MG TAB PO SCH (21:00)
[2020-05-13 06:00] LABS: Absolute Lymphocytes (CBC) 0.4 K/uL (0.7-4.9); Hematocrit 37.3 % (39.6-49.0); Lymphocytes % 2.1 % (15.3-44.8); MPV 9.3 fL (7.6-11.3); RBC Red Blood Cell Count 4.07 M/uL (4.33-5.43)
[2020-05-13 06:10] LABS: Magnesium 2.6 mg/dL (1.8-2.4); Potassium 4.7 mmol/L (3.5-5.1)
--- NOTE | 2020-05-13 08:52 | P.DS ---
Admission Date: 05/12/20 Discharge Date: 05/13/20 Primary Care Provider: Primary care in [place] Disposition: ROUTINE DISCHARGE Discharge Condition: FAIR Reason for Admission: Pneumonia Consultations: Pulmonary-Dr. Smith - Problems (1) Pneumonia due to COVID-19 virus Current Visit: Yes Status: Acute (2) History of prostate cancer Current Visit: Yes Status: Acute Brief History of Present Illness: 59-year-old gentleman with a history of prostate cancer presented to the emergency department with a complaint of fever and shortness of breath. Patient reports feeling unwell for about 5 days, had a chest x-ray done which showed b ilateral pulmonary infiltrate. He tested positive for influenza B and was started on Tamiflu and Levaquin. Patient then presented to the emergency department with ongoing symptoms. CTA thorax done in the ED demonstrated bilateral infiltrates consistent with COVID pneumonia. Test for COVID 19 obtained. He was febrile in the ED. He reports being hypoxia at home. He was tolerating room air with good oxygen saturation in the ED. Patient was hospitalized for further management. Hospital Course: Patient admitted to the medical floor and treated for possible bacteria. His COVID test came back positive. Patient did not require oxygen and was tolerating room air with good oxygen saturation. He was stable during the hospital stay and was clinically better. He was seen by pulmonary-Dr. Smith. Patient is deemed clinically stable for discharge. He is discharged with prednisone therapy and vitamin supplementation. Vital Signs/Physical Exam: Temp Pulse Resp BP Pulse Ox 98.4 F 73 21 H 121/78 94 05/13/20 04:00 05/13/20 04:00 05/13/20 04:00 05/13/20 04:00 05/13/20 04:00 General: Alert, In no apparent distress Neck: Supple, JVD not distended Cardiovascular: No edema, Regular rate/rhythm Gastrointestinal: Non-distended Musculoskeletal: No swelling Integumentary: No rashes, No erythema Neurological: Other (Nonfocal) Laboratory Data at Discharge: WBC 17.6 K/uL (4.3-10.9) H D 05/13/20 05:06 Hgb 12.6 g/dL (13.6-17.9) L 05/13/20 05:06 Hct 37.3 % (39.6-49.0) L 05/13/20 05:06 Plt Count 263 K/uL (152-406) 05/13/20 05:06 PT 15.5 SECONDS (9.5-12.5) H 05/12/20 04:45 INR 1.32 05/12/20 04:45 APTT 27.7 SECONDS (24.3-36.9) 05/12/20 04:45 Sodium 133 mmol/L (136-145) L 05/13/20 05:06 Potassium 4.7 mmol/L (3.5-5.1) 05/13/20 05:06 BUN 26 mg/dL (7-18) H 05/13/20 05:06 Creatinine 1.41 mg/dL (0.55-1.3) H 05/13/20 05:06 Glucose 229 mg/dL (74-106) H 05/13/20 05:06 Magnesium 2.6 mg/dL (1.8-2.4) H D 05/13/20 05:06 Total Bilirubin 0.8 mg/dL (0.2-1.0) 05/12/20 04:45 AST 29 U/L (15-37) 05/12/20 04:45 ALT 22 U/L (12-78) 05/12/20 04:45 Alkaline Phosphatase 74 U/L (45-117) 05/12/20 04:45 Lipase 43 U/L (73-393) L 05/12/20 04:45 Home Medications: Losartan Potassium 25 mg PO DAILY 05/12/20 Propranolol [Inderal LA*] 60 mg PO DAILY 05/12/20 Ascorbate Calcium [Vitamin C] 500 mg PO DAILY #30 tablet 05/13/20 Benzonatate [Tessalon Perle*] 100 mg PO TID PRN #30 cap 05/13/20 Cholecalciferol (Vitamin D3) [Vitamin D 1000 Iu Tab] 2,000 unit PO DAILY #60 tab 05/13/20 Oseltamivir [Tamiflu*] 75 mg PO BID #12 cap 05/13/20 Senosides [Senokot*] 17.2 mg PO BID #120 tab 05/13/20 Zinc Sulfate [Zinc Sulfate*] 220 mg PO DAILY #30 cap 05/13/20 predniSONE [Deltasone] 5 mg PO BID #49 tab 05/13/20 New Medications: predniSONE [Deltasone] 5 mg PO BID #49 tab Senosides [Senokot*] 17.2 mg PO BID #120 tab Oseltamivir [Tamiflu*] 75 mg PO BID #12 cap Benzonatate [Tessalon Perle*] 100 mg PO TID PRN #30 cap PRN Reason: Cough Ascorbate Calcium [Vitamin C] 500 mg PO DAILY #30 tablet Cholecalciferol (Vitamin D3) [Vitamin D 1000 Iu Tab] 2,000 unit PO DAILY #60 tab Zinc Sulfate [Zinc Sulfate*] 220 mg PO DAILY #30 cap Diet: AHA Activity: Ad mendez Followup: NONE,NONE [Primary Care Provider] - Sae Smith MD [ACTIVE - CAN ADMIT] - (within 2 weeks) Time spent managing pt's care (in minutes): 32
[2020-05-13] MEDS ORDERED: CEFTRIAXONE/SWI 1gm 1 GM/10 ML SYR IV SCH (09:00)
[2020-05-13] MEDS ORDERED: CEFTRIAXONE 1 GM/NS 50 ML 1 GM/50 ML BAG IV SCH (09:00)
[2020-05-13] MEDS ORDERED: AZITHROMYCIN IV 500 MG in NA CHLORIDE 0.9% 250 ML IVPB SCH (09:00)
[2020-05-13 09:01] LABS: White Blood Cell Scan OK (OK)
[2020-05-13 09:02] LABS: Blood Morphology Comment NOT SEEN (NOT SEEN); Platelet Estimate ADEQ
[2020-05-13] MEDS: OSELTAMIVIR 75 MG CAP PO SCH (09:47)
[2020-05-13] MEDS: ENOXAPARIN 40 MG/0.4 ML SQ SCH (09:47)
[2020-05-13 09:57] VITALS: BP 120/81; TEMP 98.2
[2020-05-13 10:51] VITALS: O2SAT 95
== END 2020-05-13 11:57 | disposition home or self-care (01) | DRG 177 ==
LOC: ER 03:59 → ERHOLD 06:23 → 3RD-ICU 09:11
PROVIDERS: ADMIT Internal Medicine; ATTEND Internal Medicine
DX: U07.1 COVID-19 (principal); J12.89 Other viral pneumonia; J10.08 Influenza due to other identified influenza virus with other specified pneumonia; K59.04 Chronic idiopathic constipation; I10 Essential (primary) hypertension; Z85.46 Personal history of malignant neoplasm of prostate; Z88.1 Allergy status to other antibiotic agents; Z79.899 Other long term (current) drug therapy; Z79.52 Long term (current) use of systemic steroids
CPT/HCPCS: 36415; 71275; 80048; 80076; 82550; 82553; 83690; 83735; 83880; 84484; 85025; 85379; 85610; 85730; 87040; 93005; 94010; 96365; 96375; 99285; J0456; J0696; J1650; J2405; J2930; J7030; J7040; J7050; Q9967; U0003